=== PATIENT | female | born 1935 | race Caucasian/White ===

== ENCOUNTER 2018-08-27 18:17 | Emergency (ER) | payer MEDICARE, OTHER ==
[2018-08-27 18:34] VITALS: BP 150/90; PULSE 105; O2SAT 95
[2018-08-27] MEDS ORDERED: Rocephin 1000 MG INJ IM ONE (18:36)
[2018-08-27] MEDS ORDERED: XYLOCAINE 1% HCL 20 ML MDV ONE (18:37)
[2018-08-27] MEDS ORDERED: Rocephin 1000 MG INJ ONE (18:37)
--- NOTE | 2018-08-27 18:41 | ERPHSYRPT ---
- History of Present Illness Time Seen by Provider: 08/27/18 18:38 Source: patient, family Exam Limitations: no limitations Patient Subjective Stated Complaint: was out burning trash and her wood pile in wind yesterday has horribel cough nad sore thrat today Triage Nursing Assessment: pt sam jim [id number], able to ambulate by self, skin warm dry and intact, pupils perrla2, throat is red with patches at the back. no edema notes, lung sounds celar diminished intermittant dry cough. Physician History: was out burning trash and her wood pile in wind yesterday has horribel cough nad sore thrat today, c/o fever 101.0F Timing/Duration: today Associated Symptoms: sore throat International travel in last 2 weeks: No Allergies/Adverse Reactions: No Known Drug Allergies Allergy (Verified 09/24/14 11:22) Home Medications: Dorzolamide HCl/Timolol Maleat [Cosopt Eye Drops] 1 drop OP BID 07/04/13 [ History] ALPRAZolam [Xanax 0.25 mg] 0.25 mg PO Q6H PRN PRN 04/23/14 [History] Multivit-Minerals/Folic/Ginkgo [One Daily Women's 50+ Tablet] 1 each PO DAILY [History] Hx Tetanus, Diphtheria Vaccination/Date Given: Yes Hx Influenza Vaccination/Date Given: No Hx Pneumococcal Vaccination/Date Given: No Immunizations Up to Date: Yes - Review of Systems Constitutional: No Symptoms Eyes: No Symptoms Ears, Nose, & Throat: Throat Pain Respiratory: No Symptoms Cardiac: No Symptoms Abdominal/Gastrointestinal: No Symptoms Musculoskeletal: No Symptoms - Past Medical History Pertinent Past Medical History: Yes Neurological History: No Pertinent History ENT History: Glaucoma, Other Cardiac History: No Pertinent History Respiratory History: COPD Endocrine Medical History: No Pertinent History Musculoskeletal History: Arthritis, Rheumatoid Arthritis GI Medical History: GERD, Hernia History: No Pertinent History Psycho-Social History: Anxiety Female Reproductive Disorders: No Pertinent History 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 - Past Surgical History Past Surgical History: No Neuro Surgical History: No Pertinent History Cardiac: No Pertinent History Respiratory: No Pertinent History Gastrointestinal: No Pertinent History Genitourinary: No Pertinent History Musculoskeletal: No Pertinent History Female Surgical History: Lumpectomy - Social History Smoking Status: Never smoker Exposure to second hand smoke: Yes Drug Use: none Patient Lives Alone: Yes - Female History Hx Now: No - Nursing Vital Signs Nursing Vital Signs: Initial Vital Signs Temperature 100.1 F 08/27/18 18:19 Pulse Rate 105 H 08/27/18 18:19 Respiratory Rate 20 08/27/18 18:19 Blood Pressure 150/90 08/27/18 18:19 O2 Sat by Pulse Oximetry 95 08/27/18 18:19 Pain Scale Pain Intensity 7 - Physical Exam General Appearance: no apparent distress Eye Exam: PERRL/EOMI Ears, Nose, Throat Exam: pharyngeal erythema Neck Exam: normal inspection Respiratory Exam: normal breath sounds Cardiovascular Exam: regular rate/rhythm SpO2: 95 - Course Nursing assessment & vital signs reviewed: Yes Ordered Tests: Medication Summary Discontinued Medications Generic Name Dose Route Start Last Admin Trade Name Freq PRN Reason Stop Dose Admin Ceftriaxone Sodium 1,000 mg 08/27/18 18:36 Rocephin 1000 Mg Inj IM 08/27/18 18:37 STAT ONE - Progress Progress: unchanged Air Movement: good Blood Culture(s) Obtained: No Antibiotics given: Yes Counseled pt/family regarding: diagnosis, need for follow-up - Departure Time of Disposition: 18:40 Departure Disposition: Home Clinical Impression: Strep pharyngitis Condition: Stable Critical Care Time: No Instructions: Sore Throat, Adult (DC) Additional Instructions: SORE THROAT 1. If you are prescribed antibiotics, you should finish the entire prescription as directed. 2. Many sore throats are caused by viruses and antibiotics will not help. 3. Acetaminophen or Ibuprofen as directed for fever or discomfort. 4. Cool liquids may help the pain of sore throat. Prescriptions: Amoxicillin 500 mg PO TID #30 tablet
== END 2018-08-27 18:57 | disposition home or self-care (01) ==
LOC: ED 18:17
DX: J02.0 Streptococcal pharyngitis (principal); J44.9 Chronic obstructive pulmonary disease, unspecified; M06.9 Rheumatoid arthritis, unspecified; K21.9 Gastro-esophageal reflux disease without esophagitis; F41.9 Anxiety disorder, unspecified; K44.9 Diaphragmatic hernia without obstruction or gangrene
CPT/HCPCS: 96372; 99283; J0696